=== PATIENT | female | born 1945 | race Caucasian/White ===

== ENCOUNTER → 2016-08-17 | Outpatient (REF) | payer OTHER ==
[~2016-08-17] MED LIST: /CELE20CA PO; /GLIP10TAB PO; ASPI81TA85 PO; ATEN25TA PO; BYET10IN SC; CAL-TAB2 PO; FISH1000 PO; IBUP600T26 OR; LIDO1DIS2 TD; LOPE2TAB PO; METF1000 PO; NEUR600T PO; PREV30CA6 PO; SIMV20TA2 PO; VICO5TAB PO; VITA10002 PO; vitamin D OR
== END ==
LOC: M SFHCWAGY 13:04
PROVIDERS: ATTEND Nurse Practitioner Family
DX: R35.0 Frequency of micturition (principal); R39.15 Urgency of urination; R10.2 Pelvic and perineal pain
CPT/HCPCS: 81002; 87088; 87186; G0463

== ENCOUNTER → 2016-09-18 | Outpatient (CLI) | payer OTHER ==
--- NOTE | 2016-09-18 13:15 | REP ---
MRI RIGHT SHOULDER: TECHNIQUE: Axial T2 fat sat, gradient echo, sagittal oblique T2 fat sat, coronal oblique T1, T2 fat sat. Incomplete full thickness tears are seen of the supraspinatus and infraspinatus tendons. Moderate hypertrophic degenerative changes are seen of the acromioclavicular joint with mild fluid in the joint. Acromion is curved in shape. Biceps tendon is within the bicipital groove. There is no Hill-Sachs deformity. Deltoid muscle demonstrates no abnormal signal. There is fraying of the biceps labral complex and superior labrum diffusely. No other definite labral tear is seen. There is no occult fracture. Moderate joint fluid extends into the subacromial/subdeltoid bursae. I see no paralabral cyst. IMPRESSION: Full thickness incomplete tears of supraspinatus and infraspinatus tendons. Moderate hypertrophic degenerative changes, acromioclavicular joint. Diffuse fraying of the superior labrum as well as of the biceps labral complex. Moderate joint fluid extends into the subacromial/subdeltoid bursae. Signed by Keaton Schroeder MD 09/18/2016 08:09 P
== END ==
LOC: M RAD 10:46
PROVIDERS: ATTEND Orthopaedic Surgery Sports Medicine
DX: S46.811A Strain of other muscles, fascia and tendons at shoulder and upper arm level, right arm, initial encounter (principal); X58.XXXA Exposure to other specified factors, initial encounter; Y92.9 Unspecified place or not applicable; M19.011 Primary osteoarthritis, right shoulder

== ENCOUNTER 2016-11-05 09:05 | Emergency (ER) | payer OTHER ==
[~2016-11-05] VITALS: Ht 157.5 cm; Wt 84.8 kg
[2016-11-05 09:13] VITALS: BP 150/70
[2016-11-05] MEDS ORDERED: FLUC150T PO (09:19)
[2016-11-05] MEDS ORDERED: INVO100T PO (09:19)
[2016-11-05] MEDS ORDERED: DIFL200T PO (10:10)
[2016-11-05] MEDS ORDERED: CLEO300C2 PO (10:10)
[2016-11-05] MEDS ORDERED: CLINDAMYCIN 150 MG CAP PO ONE (10:15)
== END 2016-11-05 10:23 | disposition home or self-care (01) ==
LOC: M ED 09:52
DX: N76.2 Acute vulvitis (principal); B37.9 Candidiasis, unspecified; E11.9 Type 2 diabetes mellitus without complications; R51 Headache; I10 Essential (primary) hypertension; Z79.82 Long term (current) use of aspirin; Z79.899 Other long term (current) drug therapy; Z91.018 Allergy to other foods; Z88.8 Allergy status to other drugs, medicaments and biological substances; Z91.041 Radiographic dye allergy status; Z88.0 Allergy status to penicillin; Z88.1 Allergy status to other antibiotic agents

== ENCOUNTER → 2016-11-07 | Outpatient (REF) | payer OTHER ==
[~2016-11-07] MED LIST changes: +CLEO300C2 PO; +DIFL200T PO; +FLUC150T PO; +INVO100T PO
== END ==
LOC: M SFHCWAGY 13:03
PROVIDERS: ATTEND Nurse Practitioner Women's Health
DX: A60.04 Herpesviral vulvovaginitis (principal); N89.8 Other specified noninflammatory disorders of vagina
CPT/HCPCS: 87070; 87077; 87186; 87255; G0463

== ENCOUNTER → 2017-04-13 | Outpatient (CLI) | payer OTHER ==
--- NOTE | 2017-04-13 11:51 | REPMRS ---
Patient History The patient states she had a clinical breast exam in 03/2017. Patient is postmenopausal. Family history of colorectal cancer in father and breast cancer in daughter at age 40. Benign stereotatic breast biopsy of the left breast. Digital Woman Screen Mammo: April 13, 2017 - Exam #: [id number] Bilateral CC and MLO view(s) were taken. Technologist: Lisbet Green, Technologist Prior study comparison: April 11, 2016, digital woman screen mammo performed at [facility]. March 15, 2015, digital woman screen mammo performed at [facility]. FINDINGS: There are scattered fibroglandular densities. There has been no change in the appearance of the mammogram from the prior studies. There is a mild amount of residual fibroglandular tissue which is fairly symmetric. There is no interval development of dominant mass, architectural distortion, or clustered microcalcification suggestive of malignancy. ASSESSMENT: BI-RADS/ACR category 1 mammogram. Negative. Recommendation Routine screening mammogram in 1 year (for women over age 40). This mammogram was interpreted with the aid of an FDA-approved computer-aided dectection system. Electronically Signed By: Keaton Schroeder MD 04/13/17 [id number]
== END ==
LOC: M WHC 10:27
PROVIDERS: ATTEND Nurse Practitioner Family
DX: Z01.419 Encounter for gynecological examination (general) (routine) without abnormal findings (principal); Z12.31 Encounter for screening mammogram for malignant neoplasm of breast; Z78.0 Asymptomatic menopausal state; Z12.12 Encounter for screening for malignant neoplasm of rectum; Z92.89 Personal history of other medical treatment; Z80.3 Family history of malignant neoplasm of breast
CPT/HCPCS: 82270; G0101; G0202

== ENCOUNTER 2017-11-15 07:23 | Day surgery (SDC) | payer OTHER ==
[2017-11-15] MEDS: LIDOCAINE 0.75%/EPINEPHRINE 0.025% IN BSS 1ML SYR INTRACAMERAL (OR ONLY) As Ordered (06:45)
[~2017-11-15 07:23] MED LIST changes: -/CELE20CA PO; -/GLIP10TAB PO; -ASPI81TA85 PO; -ATEN25TA PO; -BYET10IN SC; -CAL-TAB2 PO; -CLEO300C2 PO; -DIFL200T PO; -FISH1000 PO; -FLUC150T PO; -IBUP600T26 OR; -INVO100T PO; -LIDO1DIS2 TD; -LOPE2TAB PO; -METF1000 PO; -NEUR600T PO; +OFLOXACIN 0.3 % (OCUFLOX) OPTH SOL 5ML OS; +PHENYLEPHRINE 2.5% OPHTH SOL 2ML OS; -PREV30CA6 PO; +PROPARACAINE 0.5% OPHTH SOL 15ML OS; -SIMV20TA2 PO; +TROPICAMIDE 1% OPHTH SOLN 2ML OS; -VICO5TAB PO; -VITA10002 PO; -vitamin D OR
[2017-11-15] MEDS ORDERED: fentaNYL 100 MCG/2 ML INJECTION (J3010) As Ordered (08:08)
[2017-11-15] MEDS ORDERED: MIDAZOLAM INJ 2 MG/2 ML VIAL (J2250) As Ordered (08:08)
[2017-11-15 08:26] LABS: BEDSIDE GLUCOSE 256 MG/DL (83-110)
[2017-11-15] MEDS: PROPARACAINE 0.5% OPHTH SOL 15ML OS (08:51)
[2017-11-15] MEDS: OFLOXACIN 0.3 % (OCUFLOX) OPTH SOL 5ML OS (08:52)
[2017-11-15] MEDS: TROPICAMIDE 1% OPHTH SOLN 2ML OS (08:52)
[2017-11-15] MEDS: POVIDONE-IODINE 5% OPHTH PREP SOL 30ML As Ordered (09:27)
[2017-11-15] MEDS: DUOVISC (0.50ML VISCOAT/0.55ML PROVISC) OPHTH KIT As Ordered (09:28)
[2017-11-15] MEDS: BALANCED SALT IRRIGATION SOLUTION 500ML BAG (FOR OR EYE MACHINE) As Ordered (09:28)
[2017-11-15] MEDS: LIDOCAINE 1% SDV 5 ML VIAL As Ordered (09:28)
== END 2017-11-15 10:35 | disposition home or self-care (01) ==
LOC: M SDC 07:23
DX: H25.12 Age-related nuclear cataract, left eye (principal); I10 Essential (primary) hypertension; E11.21 Type 2 diabetes mellitus with diabetic nephropathy; M12.9 Arthropathy, unspecified; E78.00 Pure hypercholesterolemia, unspecified; E03.9 Hypothyroidism, unspecified; K58.9 Irritable bowel syndrome, unspecified; K21.9 Gastro-esophageal reflux disease without esophagitis; R51 Headache; G47.33 Obstructive sleep apnea (adult) (pediatric); Z88.0 Allergy status to penicillin; Z88.1 Allergy status to other antibiotic agents; Z88.6 Allergy status to analgesic agent; Z88.8 Allergy status to other drugs, medicaments and biological substances; Z91.041 Radiographic dye allergy status; Z79.899 Other long term (current) drug therapy; Z79.82 Long term (current) use of aspirin; Z79.84 Long term (current) use of oral hypoglycemic drugs; Z90.710 Acquired absence of both cervix and uterus
CPT/HCPCS: 66984

== ENCOUNTER 2017-11-22 06:20 | Day surgery (SDC) | payer OTHER ==
[~2017-11-22 06:20] MED LIST changes: -OFLOXACIN 0.3 % (OCUFLOX) OPTH SOL 5ML OS; -PHENYLEPHRINE 2.5% OPHTH SOL 2ML OS; -PROPARACAINE 0.5% OPHTH SOL 15ML OS; +SLF 3 ML SYR IV; -TROPICAMIDE 1% OPHTH SOLN 2ML OS
[2017-11-22] MEDS ORDERED: fentaNYL 100 MCG/2 ML INJECTION (J3010) As Ordered (06:55)
[2017-11-22] MEDS ORDERED: MIDAZOLAM INJ 2 MG/2 ML VIAL (J2250) As Ordered (06:55)
[2017-11-22] MEDS: PROPARACAINE 0.5% OPHTH SOL 15ML OD (07:00)
[2017-11-22] MEDS: PHENYLEPHRINE 2.5% OPHTH SOL 2ML OD (07:01)
[2017-11-22] MEDS: TROPICAMIDE 1% OPHTH SOLN 2ML OD (07:02)
[2017-11-22] MEDS: OFLOXACIN 0.3 % (OCUFLOX) OPTH SOL 5ML OD (07:05)
[2017-11-22 07:13] LABS: BEDSIDE GLUCOSE 240 MG/DL (83-110)
[2017-11-22] MEDS: POVIDONE-IODINE 5% OPHTH PREP SOL 30ML As Ordered (08:02)
[2017-11-22] MEDS: ACETYLCHOLINE OPHTH SOLN 1% 2ML (MIOCHOL-E) As Ordered (08:04)
[2017-11-22] MEDS: LIDOCAINE 0.75%/EPINEPHRINE 0.025% IN BSS 1ML SYR INTRACAMERAL (OR ONLY) As Ordered (08:04)
[2017-11-22] MEDS: DUOVISC (0.50ML VISCOAT/0.55ML PROVISC) OPHTH KIT As Ordered (08:04)
[2017-11-22] MEDS: BALANCED SALT IRRIGATION SOLUTION 500ML BAG (FOR OR EYE MACHINE) As Ordered (08:04)
== END 2017-11-22 09:05 | disposition home or self-care (01) ==
LOC: M SDC 06:20
DX: H25.11 Age-related nuclear cataract, right eye (principal); I10 Essential (primary) hypertension; E78.00 Pure hypercholesterolemia, unspecified; E03.9 Hypothyroidism, unspecified; K58.9 Irritable bowel syndrome, unspecified; K21.9 Gastro-esophageal reflux disease without esophagitis; R51 Headache; G47.33 Obstructive sleep apnea (adult) (pediatric); E11.21 Type 2 diabetes mellitus with diabetic nephropathy; M15.0 Primary generalized (osteo)arthritis; Z88.0 Allergy status to penicillin; Z88.1 Allergy status to other antibiotic agents; Z88.8 Allergy status to other drugs, medicaments and biological substances; Z91.041 Radiographic dye allergy status; Z79.899 Other long term (current) drug therapy; Z79.82 Long term (current) use of aspirin; Z79.84 Long term (current) use of oral hypoglycemic drugs; Z90.710 Acquired absence of both cervix and uterus
CPT/HCPCS: 66984

== ENCOUNTER → 2017-11-27 | Outpatient (REF) | payer OTHER | LOC: M LAB REF 17:17 | DX: R30.0 Dysuria (principal) | CPT/HCPCS: 87086 ==

== ENCOUNTER → 2018-04-15 | Outpatient (CLI) | payer OTHER | LOC: M WHC 10:35 | DX: Z12.31 Encounter for screening mammogram for malignant neoplasm of breast (principal); Z01.419 Encounter for gynecological examination (general) (routine) without abnormal findings (principal); Z92.89 Personal history of other medical treatment; R92.1 Mammographic calcification found on diagnostic imaging of breast; Z85.3 Personal history of malignant neoplasm of breast; Z12.12 Encounter for screening for malignant neoplasm of rectum | CPT/HCPCS: 77067 ==

== ENCOUNTER 2018-05-28 12:30 | Emergency (ER) | payer MEDICARE, OTHER ==
[~2018-05-28] VITALS: Ht 157.5 cm; Wt 91.8 kg
[~2018-05-28 12:30] MED LIST changes: +/CELE20CA PO; +/GLIP10TAB PO; +ASPI81TA85 PO; +ATEN25TA PO; +ATOR40TA75 PO; +BYET10IN SC; +CAL-TAB2 PO; +CLEO300C2 PO; +DIFL200T PO; +FISH1000 PO; +FLUC150T PO; +GABA-845 PO; +GLIP2.5T6 PO; +IBUP600T26 OR; +INVO100T PO; +LANS30CA PO; +LIDO1DIS2 TD; +LISI-538 PO; +LOPE2CA PO; +LOPE2TAB PO; +METF1000 PO; +METF10004 PO; +METO1TAB7 PO; +NEUR600T PO; +PREV30CA6 PO; +SIMV20TA2 PO; -SLF 3 ML SYR IV; +TORS10TA3 PO; +VICO5TAB PO; +VICT18IN SC; +VITA10002 PO; +VITA200016 PO; +vitamin D OR
[2018-05-28 12:31] VITALS: BP 138/78
[2018-05-28] MEDS ORDERED: TRES1INJ2 SC (12:43)
[2018-05-28] MEDS ORDERED: PRED20TA PO (13:23)
[2018-05-28] MEDS ORDERED: ZOFR4TAB14 PO (13:23)
[2018-05-28] MEDS ORDERED: ACET30TAB PO (13:23)
[2018-05-28] MEDS ORDERED: ONDANSETRON 4 MG ORAL DISINTEGRATING TAB (Q0162 PER 1MG) PO ONE (13:30)
[2018-05-28] MEDS ORDERED: ACETAMINOPH W/CODEINE #3 TAB UD PO ONE (13:30)
== END 2018-05-28 13:30 | disposition home or self-care (01) ==
LOC: M ED 12:30
DX: M54.5 Low back pain (principal); G89.29 Other chronic pain
CPT/HCPCS: 99282; Q0162

== ENCOUNTER → 2018-08-31 | Outpatient (CLI) | payer MEDICARE ==
[~2018-08-31] MED LIST changes: -/CELE20CA PO; +ACET-716 PO; +CELE1CAP4 PO; +PRED20TA PO; +TRES1INJ2 SC; +ZOFR4TAB14 PO
--- NOTE | 2018-08-31 13:14 | REP ---
Clinical: Sprain. Technique: AP, lateral, bilateral oblique and sunrise views of the left knee. Findings: Moderate tricompartmental osteoarthritic degenerative changes include subchondral sclerosis, joint space narrowing, osteophytosis and very minimal chondrocalcinosis. No acute fracture dislocation. No obvious effusion. Impression: Moderate tricompartmental degenerative changes. Electronically Signed by Fredrick Montoya MD 08/31/2018 01:05 P
== END ==
LOC: M WUC 12:44
PROVIDERS: ATTEND Physician Assistant
DX: S83.402A Sprain of unspecified collateral ligament of left knee, initial encounter (principal); M17.12 Unilateral primary osteoarthritis, left knee; X58.XXXA Exposure to other specified factors, initial encounter; Y92.89 Other specified places as the place of occurrence of the external cause

== ENCOUNTER → 2018-12-17 | Outpatient (REF) | payer MEDICARE | LOC: M LAB REF 10:44 | DX: R19.7 Diarrhea, unspecified (principal) ==

== ENCOUNTER → 2019-04-16 | Outpatient (CLI) | payer BC, MEDICARE ==
--- NOTE | 2019-04-16 12:15 | REPMRS ---
Patient History The patient states she had a clinical breast exam in 03/2019. Patient is postmenopausal. Family history of breast cancer at age 40 in daughter, colorectal cancer in father. Benign stereotatic breast biopsy of the left breast. No Hormone Replacement Therapy 3D TOMOSYNTHESIS WAS PERFORMED. [facility] lifetime risk for breast cancer is 6.3%. Digital Woman Screen Mammo: April 16, 2019 - Exam #: [id number] Bilateral CC and MLO view(s) were taken. Technologist: Lisbet Green, Technologist Prior study comparison: April 15, 2018, bilateral digital woman screen mammo performed at [facility]. April 13, 2017, digital woman screen mammo performed at [facility]. FINDINGS: There are scattered fibroglandular densities. There has been no change in the appearance of the mammogram from the prior studies. There is a mild amount of residual fibroglandular tissue which is fairly symmetric. There is no interval development of dominant mass, architectural distortion, or clustered microcalcification suggestive of malignancy. Assessment: BI-RADS/ACR category 1 mammogram. Negative Mammogram. Recommendation Routine screening mammogram in 1 year (for women over age 40). This mammogram was interpreted with the aid of an FDA-approved computer-aided dectection system. Electronically Signed By: Keaton Schroeder MD 04/16/19 [id number]
== END ==
LOC: M WHC 09:26
PROVIDERS: ATTEND Nurse Practitioner Family
DX: Z12.31 Encounter for screening mammogram for malignant neoplasm of breast (principal); Z78.0 Asymptomatic menopausal state; Z80.3 Family history of malignant neoplasm of breast; Z80.0 Family history of malignant neoplasm of digestive organs; Z86.018 Personal history of other benign neoplasm

== ENCOUNTER → 2019-10-21 | Outpatient (CLI) | payer MEDICARE ==
--- NOTE | 2019-10-21 11:51 | REPMRS ---
Patient History The patient states she has not had a clinical breast exam in over a year. Patient is postmenopausal. Family history of breast cancer at age 40 in daughter, colorectal cancer in father. Benign stereotatic breast biopsy of the left breast. No Hormone Replacement Therapy Digital Woman Screen Mammo: October 21, 2019 - Exam #: [id number] Bilateral CC and MLO view(s) were taken. Technologist: Amara Murray, Technologist Prior study comparison: April 16, 2019, bilateral digital woman screen mammo performed at [facility]. April 15, 2018, bilateral digital woman screen mammo performed at [facility]. April 13, 2017, digital woman screen mammo performed at [facility]. FINDINGS: The breast tissue is almost entirely fat. The Volpara volumetric breast density category is: A. There is a needle biopsy marker clip again noted in the right breast upper outer quadrant. There has been no change in the appearance of the mammogram from the prior studies. There is no interval development of dominant mass, architectural distortion, or grouped microcalcification typical of malignancy. 3-D tomosynthesis shows no additional findings. Assessment: BI-RADS/ACR category 2 mammogram. Benign Findings. Recommendation Routine screening mammogram of both breasts in 1 year (for women over age 40). This patient's Lifetime Breast Cancer RIsk is estimated at 6.3 %. This mammogram was interpreted with the aid of an FDA-approved computer-aided dectection system. Electronically Signed By: Catracho Malave MD 10/21/19 [id number]
== END ==
LOC: M WHC 10:27
PROVIDERS: ATTEND Nurse Practitioner Adult Health
DX: Z12.31 Encounter for screening mammogram for malignant neoplasm of breast (principal); Z78.0 Asymptomatic menopausal state; Z80.3 Family history of malignant neoplasm of breast; Z80.0 Family history of malignant neoplasm of digestive organs; Z86.018 Personal history of other benign neoplasm

== ENCOUNTER 2020-01-29 07:45 | Outpatient (RCR) | payer MEDICARE | END 2020-02-25 | LOC: M PT 07:45 | PROVIDERS: ATTEND Nurse Practitioner Adult Health | DX: R42 Dizziness and giddiness (principal) ==

== ENCOUNTER → 2020-04-19 | Outpatient (CLI) | payer MEDICARE ==
--- NOTE | 2020-04-19 13:37 | DEXAMM ---
INDICATION: Z78.0 ASYMPTOMATIC MENOPAUSAL STATE. COMPARISON: 03/15/2015. TECHNIQUE: Bone density was measured using dual-energy x-ray absorptiometry (DEXA). FINDINGS: AP SPINE L1-L4 BMD 0.954 g/cm2 Young Adult T-Score -1.9 Age Matched Z-Score -0.2. LT FEMUR, TOTAL BMD 1.085 g/cm2 Young Adult T-Score 0.6 Age Matched Z-Score 2.4. LT NECK BMD by 0.915 g/cm2 Young Adult T-Score 5-0.9 Age Matched Z-Score 1.1. RT FEMUR, TOTAL BMD 1.054 g/cm2 Young Adult T-Score 0.4 Age Matched Z-Score for 2.2. RT NECK BMD 0.905 g/cm2 Young Adult T-Score 5-1.0 Age Matched Z-Score 1.0. IMPRESSION: There is low bone density of the spine. There is normal bone density of the left hip. There is low bone density of the right hip. The density of the spine has increased 1.1% since the initial exam on 03/15/2015. The density of the left hip has decreased 1.9% since initial exam on 03/15/2015. The density of the right hip has increased 1.1% since the initial exam on 03/15/2015. FOLLOW-UP: Recommendation for the next bone density exam: 2 years. <Electronically signed by Keaton Schroeder > 04/19/20 [id number]
== END ==
LOC: M WHC 09:42
PROVIDERS: ATTEND Nurse Practitioner Family
DX: Z78.0 Asymptomatic menopausal state (principal)

== ENCOUNTER → 2020-10-21 | Outpatient (CLI) | payer MEDICARE ==
[~2020-10-21] MED LIST changes: +GABA-283 PO; -GABA-845 PO; -LISI-538 PO; +LISI20TA33 PO
--- NOTE | 2020-10-21 10:34 | REP ---
INDICATION: LOW BACK PAIN COMPARISON: None. TECHNIQUE: AP, lateral, bilateral oblique, and coned-down views of the lumbar spine. FINDINGS: AP radiograph demonstrates mild chronic dextroconvex scoliosis. Generalized age-related osteopenia noted. There is no evidence for acute fracture/compression injury or subluxation. Relatively moderate multilevel degenerative changes include osteophytosis, endplate sclerosis, facet hypertrophy. Minimal disc space narrowing noted at multiple levels. IMPRESSION: Osteopenia and relatively moderate multilevel degenerative changes. <Electronically signed by Fredrick Montoya > 10/21/20 [id number]
== END ==
LOC: M WUC 10:04
PROVIDERS: ATTEND Nurse Practitioner Adult Health
DX: M85.88 Other specified disorders of bone density and structure, other site (principal); M41.9 Scoliosis, unspecified

== ENCOUNTER → 2020-10-21 | Outpatient (CLI) | payer MEDICARE ==
--- NOTE | 2020-10-21 10:44 | REPMRS ---
Patient History The patient states she has not had a clinical breast exam in over a year. Family history of breast cancer at age 40 in daughter, colorectal cancer in father. Benign stereotatic breast biopsy of the left breast. No Hormone Replacement Therapy Patient states no breast complaints today. Patient has signed MRS History Sheet. Digital Woman Screen Mammo: October 21, 2020 - Exam #: [id number] Bilateral CC and MLO view(s) were taken. Technologist: Freda Serrano, Technologist Prior study comparison: October 21, 2019, bilateral digital woman screen mammo performed at [facility]. April 16, 2019, bilateral digital woman screen mammo performed at [facility]. April 15, 2018, bilateral digital woman screen mammo performed at [facility]. FINDINGS: There are scattered fibroglandular densities. The Volpara volumetric breast density category is:B. There is a needle biopsy marker clip noted in the right breast. There has been no change in the appearance of the mammogram from the prior studies. There is a mild amount of scattered fibroglandular density which is fairly symmetric. There is no interval development of dominant mass, architectural distortion, or grouped microcalcification suggestive of malignancy. 3-D tomosynthesis shows no additional findings. Assessment: BI-RADS/ACR category 2 mammogram. Benign Findings. Recommendation Routine screening mammogram of both breasts in 1 year (for women over age 40). This patient's [facility] Lifetime Breast Cancer Risk is estimated at 5.8 %. This mammogram was interpreted with the aid of an FDA-approved computer-aided dectection system. Electronically Signed By: Catracho Malave MD 10/21/20 [id number]
== END ==
LOC: M WHC 09:18
PROVIDERS: ATTEND Nurse Practitioner Adult Health
DX: Z12.31 Encounter for screening mammogram for malignant neoplasm of breast (principal); Z80.3 Family history of malignant neoplasm of breast; Z80.8 Family history of malignant neoplasm of other organs or systems

== ENCOUNTER → 2021-04-18 | Outpatient (CLI) | payer MEDICARE ==
--- NOTE | 2021-04-18 14:11 | REP ---
INDICATION: PAIN. COMPARISON: None. TECHNIQUE: Three views of the left shoulder were performed. FINDINGS: The acromioclavicular and glenohumeral relationships are within normal limits. There is no acute fracture or destructive osseous lesion. There are mild AC joint degenerative changes. IMPRESSION: Mild degenerative changes <Electronically signed by Scar Stevens > 04/18/21 [id number]
--- NOTE | 2021-04-18 14:11 | REP ---
INDICATION: PAIN COMPARISON: None. TECHNIQUE: AP, lateral, bilateral oblique views of the left elbow. FINDINGS: No acute fracture or dislocation is appreciated. Joint spaces and surrounding soft tissues appear normal. Lateral view demonstrates normal positioning to the anterior and posterior fat pads without evidence for effusion/hemarthrosis. No subcutaneous emphysema or foreign body identified. IMPRESSION: Normal elbow radiographs. <Electronically signed by Fredrick Montoya > 04/18/21 [id number]
--- NOTE | 2021-04-18 14:12 | REP ---
INDICATION: PAIN COMPARISON: 08/31/2018 TECHNIQUE: Five views FINDINGS: There is tricompartmental marginal osteophytosis status quo. There is medial compartmental narrowing which has increased from the prior exam. There is asymmetric patellofemoral joint space narrowing increased from the prior exam. There is no acute fracture, dislocation, or subluxation. IMPRESSION: Chronic changes as described above. <Electronically signed by Scar Stevens > 04/18/21 [id number]
== END ==
LOC: M WUC 12:59
PROVIDERS: ATTEND Physician Assistant
DX: M25.512 Pain in left shoulder (principal); M25.522 Pain in left elbow; M25.762 Osteophyte, left knee

== ENCOUNTER → 2021-11-24 | Outpatient (CLI) | payer OTHER ==
[~2021-11-24] MED LIST changes: -FLUC150T PO; +FLUC150T9 PO
== END ==
LOC: M WHC 07:59
PROVIDERS: ATTEND Nurse Practitioner Adult Health
DX: Z12.31 Encounter for screening mammogram for malignant neoplasm of breast (principal)

== ENCOUNTER → 2021-12-15 | Outpatient (CLI) | payer OTHER | LOC: M WHC 12:15 | PROVIDERS: ATTEND Nurse Practitioner Adult Health | DX: R92.8 Other abnormal and inconclusive findings on diagnostic imaging of breast (principal); N63.11 Unspecified lump in the right breast, upper outer quadrant ==

== ENCOUNTER → 2021-12-19 | Outpatient (CLI) | payer OTHER | LOC: M WUC 14:37 | PROVIDERS: ATTEND Registered Nurse | DX: F45.41 Pain disorder exclusively related to psychological factors (principal); M25.511 Pain in right shoulder ==

== ENCOUNTER → 2022-01-05 | Outpatient (CLI) | payer OTHER ==
[~2022-01-05] MED LIST changes: +**SFHN** LIDOCAINE 1% MDV 20ML VIAL ONE; +**SFHN** SODIUM BICARBONATE 8.4% 50MEQ 50ML VIAL ONE; +CINN500C15 PO; +GLIM2TAB4 PO; +LANTINJ4 SC; +LOPE1CAP5 PO; +PROTPAK PO; +SEMA1PEN2 SQ
[2022-01-05 14:15] VITALS: BP 120/70
== END ==
LOC: M WHCPRO 12:24
PROVIDERS: ATTEND Nurse Practitioner Adult Health
DX: D24.1 Benign neoplasm of right breast (principal); N63.11 Unspecified lump in the right breast, upper outer quadrant

== ENCOUNTER → 2022-01-09 | Outpatient (CLI) | payer OTHER ==
[~2022-01-09] MED LIST changes: -**SFHN** LIDOCAINE 1% MDV 20ML VIAL ONE; -**SFHN** SODIUM BICARBONATE 8.4% 50MEQ 50ML VIAL ONE
== END ==
LOC: M PLAIMG 09:50
PROVIDERS: ATTEND Registered Nurse
DX: R91.1 Solitary pulmonary nodule (principal); K80.20 Calculus of gallbladder without cholecystitis without obstruction

== ENCOUNTER → 2022-01-24 | Outpatient (CLI) | payer OTHER | LOC: M CARPUL 11:56 | PROVIDERS: ATTEND Nurse Practitioner Adult Health | DX: R01.1 Cardiac murmur, unspecified (principal) ==

== ENCOUNTER → 2022-01-31 | Outpatient (CLI) | payer OTHER | LOC: M PLAIMG 10:01 | PROVIDERS: ATTEND Registered Nurse | DX: R91.1 Solitary pulmonary nodule (principal) ==

== ENCOUNTER → 2022-03-01 | Outpatient (REF) | payer OTHER | LOC: M LAB REF 16:27 | PROVIDERS: ATTEND Nurse Practitioner Adult Health | DX: Z11.59 Encounter for screening for other viral diseases (principal) ==

== ENCOUNTER → 2022-04-03 | Outpatient (REF) | payer OTHER | LOC: M LAB REF 11:54 | PROVIDERS: ATTEND Nurse Practitioner Adult Health | DX: S70.361A Insect bite (nonvenomous), right thigh, initial encounter (principal); Z11.59 Encounter for screening for other viral diseases; W18.30XA Fall on same level, unspecified, initial encounter; Y92.009 Unspecified place in unspecified non-institutional (private) residence as the place of occurrence of the external cause ==

== ENCOUNTER → 2022-05-12 | Outpatient (REF) | payer OTHER | LOC: M LAB REF 17:20 | PROVIDERS: ATTEND Nurse Practitioner Adult Health | DX: R32 Unspecified urinary incontinence (principal) ==

== ENCOUNTER → 2022-07-05 | Outpatient (CLI) | payer OTHER | LOC: M WUC 11:48 | PROVIDERS: ATTEND Nurse Practitioner Adult Health | DX: R05.9 Cough, unspecified (principal); I70.0 Atherosclerosis of aorta ==

== ENCOUNTER 2022-07-22 09:42 | Inpatient (IN) | payer OTHER ==
[~2022-07-22] VITALS: Ht 165.1 cm; Wt 93.7 kg
[2022-07-22] MEDS ORDERED: NS 1,000 ML IV SCH (10:10)
[2022-07-22 10:53] LABS: VENOUS BASE EXCESS -0.1 (-2.0-2.0); VENOUS HCO3 26.7 MEQ/L (23.0-27.0); VENOUS O2 SATURATION 87.4 % (60.0-80.0); VENOUS PARTIAL PRESSURE CO2 52.2 mmHg (38.0-50.0); VENOUS PARTIAL PRESSURE O2 59.1 mmHg (30.0-50.0); VENOUS PH 7.326 UNITS (7.330-7.430); VENOUS STANDARD HCO3 24.2 MEQ/L; VENOUS TOTAL CO2 28.3 MEQ/L (24.0-28.0)
[2022-07-22 10:55] LABS: BASO % 0.4 % (0.0-1.0); HEMATOCRIT 38.5 % (36.0-47.0); LYMPH % 19.5 % (24.0-44.0); MEAN CORPUSCULAR HEMOGLOBIN 30.1 pg (27.0-33.0); MEAN CORPUSCULAR HGB CONC 31.2 g/dl (32.0-36.5); MEAN CORPUSCULAR VOLUME 96.5 fl (80.0-96.0); MONO # 0.8 10^3/uL (0.0-0.8); MONO % 15.8 % (2.0-8.0); NEUTROPHILS # 3.4 10^3/uL (1.5-8.5); NEUTROPHILS % 63.9 % (36.0-66.0); PLATELET COUNT, AUTOMATED 185 10^3/uL (150-450); RED BLOOD COUNT 3.99 10^6/uL (4.00-5.40); WHITE BLOOD COUNT 5.3 10^3/uL (4.0-10.0)
[2022-07-22 11:26] LABS: RSV AMPLIFICATION NEGATIVE (NEGATIVE)
[2022-07-22 11:44] LABS: ALBUMIN 3.6 G/DL (3.2-5.2); BILIRUBIN,DIRECT 0.2 MG/DL (<0.4); BILIRUBIN,TOTAL 0.5 MG/DL (0.3-1.2); CREATININE FOR GFR 1.6 MG/DL (0.55-1.30); GLOMERULAR FILTRATION RATE 33.2 (>39); POTASSIUM SERUM 4.2 MMOL/L (3.5-5.1); THYROID STIMULATING HORMONE 0.615 uIU/ML (0.55-4.78)
[2022-07-22] MEDS ORDERED: methylPREDNISolone 125MG 2ML VIAL IV ONE (13:20)
[2022-07-22] MEDS ORDERED: DEXTROSE 50% 50ML SYRINGE IV PRN (13:20)
[2022-07-22] MEDS ORDERED: GLUCAGON INJ 1MG VIAL SC PRN (13:20)
[2022-07-22] MEDS ORDERED: GLUCOSE 4GM CHEW TABLET PO PRN (13:20)
[2022-07-22] MEDS ORDERED: ALBUTEROL 90 MCG/ACT 8GM HFA INHALER INH PRN (13:20)
[2022-07-22] MEDS: NS 1,000 ML IV SCH ×2 (13:50→23:59)
[2022-07-22 14:48] VITALS: O2SAT 96
[2022-07-22] MEDS: COMBIVENT RESPIMAT 100-20MCG INHALER 4GM INH SCH ×2 (14:48→20:14)
[2022-07-22] MEDS ORDERED: ASPI81TA26 PO (14:54)
[2022-07-22] MEDS ORDERED: PANT40TA29 PO (14:54)
[2022-07-22] MEDS ORDERED: B-12100020 PO (14:54)
[2022-07-22] MEDS ORDERED: FLUTISP NARES (14:54)
[2022-07-22] MEDS ORDERED: VITA100093 PO (14:54)
[2022-07-22] MEDS ORDERED: JARD1TAB PO (14:54)
[2022-07-22] MEDS ORDERED: METO1TAB33 PO (14:54)
[2022-07-22] MEDS ORDERED: HOME MED LIST COMPLETE! XX SCH (15:00)
[2022-07-22 15:29] LABS: INR 1.03; PARTIAL THROMBOPLASTIN TIME 26.1 SECONDS (24.8-34.2); PROTHROMBIN TIME 13.7 SECONDS (12.5-14.5)
[2022-07-22 15:32] LABS: D-DIMER QUANT 1112.46 ng/ml (<500)
[2022-07-22 16:45] VITALS: BP 134/65
[2022-07-22] MEDS: INSULIN LISPRO (NovoLOG) PER UNIT SC SCH ×2 (17:44→21:00)
[2022-07-22] MEDS ORDERED: REMDESIVIR 200 MG in NS 250 ML IV ONE (18:00)
[2022-07-22] MEDS ORDERED: SODIUM CHLORIDE 0.9% INJ 10 ML SYR IV ONE (19:00)
[2022-07-22] MEDS ORDERED: FLUTICASONE PROP 0.05% NASAL SPRAY 16 GM (FLONASE) NARES PRN (19:20)
[2022-07-22 20:00] VITALS: BP 138/71
[2022-07-22] MEDS: ASPIRIN 81MG ENTERIC TABLET PO SCH (21:35)
[2022-07-22] MEDS: GABAPENTIN 300 MG CAP PO SCH (21:35)
[2022-07-22] MEDS: HEPARIN SOD (PORCINE) 5000UNITS/ML 1ML VIAL/SYRINGE SQ SCH (21:35)
[2022-07-22] MEDS: ATORVASTATIN 20 MG TAB PO SCH (21:36)
[2022-07-22] MEDS: ACETAMINOPHEN TAB 650MG DOSE (2X325MG) PO PRN (21:36)
[2022-07-23 06:00] VITALS: BP 132/64
[2022-07-23] MEDS: ACETAMINOPHEN TAB 650MG DOSE (2X325MG) PO PRN ×2 (06:33→20:07)
[2022-07-23 06:36] LABS: HEMATOCRIT 35.9 % (36.0-47.0); HEMOGLOBIN 10.9 g/dl (12.0-15.5); MEAN CORPUSCULAR HEMOGLOBIN 29.5 pg (27.0-33.0); MEAN CORPUSCULAR HGB CONC 30.4 g/dl (32.0-36.5); PLATELET COUNT, AUTOMATED 157 10^3/uL (150-450); WHITE BLOOD COUNT 3.9 10^3/uL (4.0-10.0)
[2022-07-23 07:11] LABS: BILIRUBIN,TOTAL 0.3 MG/DL (0.3-1.2); CALCIUM LEVEL 8.1 MG/DL (8.3-10.6); CREATININE FOR GFR 1.42 MG/DL (0.55-1.30); GLOMERULAR FILTRATION RATE 38.1 (>39); POTASSIUM SERUM 4.3 MMOL/L (3.5-5.1); TOTAL PROTEIN 5.9 G/DL (5.7-8.2)
[2022-07-23] MEDS: COMBIVENT RESPIMAT 100-20MCG INHALER 4GM INH SCH ×4 (07:21→19:07)
[2022-07-23] MEDS: GABAPENTIN 300 MG CAP PO SCH ×3 (08:17→20:06)
[2022-07-23] MEDS: INSULIN LISPRO (NovoLOG) PER UNIT SC SCH ×4 (08:18→20:06)
[2022-07-23] MEDS: PANTOPRAZOLE 40MG TAB (PROTONIX) PO SCH (08:18)
[2022-07-23] MEDS: HEPARIN SOD (PORCINE) 5000UNITS/ML 1ML VIAL/SYRINGE SQ SCH ×2 (08:19→20:06)
[2022-07-23] MEDS: METOPROLOL SUCC (TopROL XL) 100MG *XL* TAB PO SCH (08:26)
[2022-07-23] MEDS ORDERED: LEVEMIR (INSULIN DETEMIR) 1 UNITS/0.01ML SC SCH ×2 (09:00)
[2022-07-23] MEDS: NS 1,000 ML IV SCH ×2 (10:48→22:58)
[2022-07-23 14:00] VITALS: BP 113/53
[2022-07-23] MEDS: REMDESIVIR 100 MG in NS 250 ML IV SCH (17:18)
[2022-07-23] MEDS: SODIUM CHLORIDE 0.9% INJ 10 ML SYR IV SCH (17:18)
[2022-07-23] MEDS: ATORVASTATIN 20 MG TAB PO SCH (20:05)
[2022-07-23] MEDS: ASPIRIN 81MG ENTERIC TABLET PO SCH (20:05)
[2022-07-23 22:00] VITALS: BP 114/52
[2022-07-24] MEDS: ACETAMINOPHEN TAB 650MG DOSE (2X325MG) PO PRN ×2 (04:11→20:42)
[2022-07-24 06:00] VITALS: BP 119/63
[2022-07-24 06:16] LABS: HEMATOCRIT 30.8 % (36.0-47.0); HEMOGLOBIN 9.6 g/dl (12.0-15.5); MEAN CORPUSCULAR HEMOGLOBIN 29.7 pg (27.0-33.0); MEAN CORPUSCULAR HGB CONC 31.2 g/dl (32.0-36.5); MEAN CORPUSCULAR VOLUME 95.4 fl (80.0-96.0); PLATELET COUNT, AUTOMATED 162 10^3/uL (150-450); RED BLOOD COUNT 3.23 10^6/uL (4.00-5.40); WHITE BLOOD COUNT 4.3 10^3/uL (4.0-10.0)
[2022-07-24 06:51] LABS: ALBUMIN 2.7 G/DL (3.2-5.2); BILIRUBIN,TOTAL 0.2 MG/DL (0.3-1.2); CALCIUM LEVEL 7.7 MG/DL (8.3-10.6); CREATININE FOR GFR 1.14 MG/DL (0.55-1.30); GLOMERULAR FILTRATION RATE 49.1 (>39); POTASSIUM SERUM 4.5 MMOL/L (3.5-5.1); TOTAL PROTEIN 5.3 G/DL (5.7-8.2)
[2022-07-24] MEDS: COMBIVENT RESPIMAT 100-20MCG INHALER 4GM INH SCH ×4 (08:00→19:18)
[2022-07-24] MEDS: HEPARIN SOD (PORCINE) 5000UNITS/ML 1ML VIAL/SYRINGE SQ SCH ×2 (08:40→20:39)
[2022-07-24] MEDS: GABAPENTIN 300 MG CAP PO SCH ×3 (08:41→20:39)
[2022-07-24] MEDS: METOPROLOL SUCC (TopROL XL) 100MG *XL* TAB PO SCH (08:41)
[2022-07-24] MEDS: PANTOPRAZOLE 40MG TAB (PROTONIX) PO SCH (08:41)
[2022-07-24] MEDS: LEVEMIR (INSULIN DETEMIR) 1 UNITS/0.01ML SC SCH (08:42)
[2022-07-24] MEDS: INSULIN LISPRO (NovoLOG) PER UNIT SC SCH ×4 (08:43→20:40)
[2022-07-24] MEDS ORDERED: predniSONE 20 MG TAB PO SCH (09:00)
[2022-07-24 14:00] VITALS: BP 109/47
[2022-07-24] MEDS: REMDESIVIR 100 MG in NS 250 ML IV SCH (17:33)
[2022-07-24] MEDS: SODIUM CHLORIDE 0.9% INJ 10 ML SYR IV SCH (19:00)
[2022-07-24 20:00] VITALS: BP 108/49
[2022-07-24] MEDS: ATORVASTATIN 20 MG TAB PO SCH (20:39)
[2022-07-24] MEDS: ASPIRIN 81MG ENTERIC TABLET PO SCH (20:39)
[2022-07-25 04:08] VITALS: BP 117/58
[2022-07-25 06:01] LABS: HEMATOCRIT 31.6 % (36.0-47.0); HEMOGLOBIN 9.9 g/dl (12.0-15.5); MEAN CORPUSCULAR HEMOGLOBIN 29.7 pg (27.0-33.0); MEAN CORPUSCULAR HGB CONC 31.3 g/dl (32.0-36.5); MEAN CORPUSCULAR VOLUME 94.9 fl (80.0-96.0); PLATELET COUNT, AUTOMATED 150 10^3/uL (150-450); RED BLOOD COUNT 3.33 10^6/uL (4.00-5.40); WHITE BLOOD COUNT 4.6 10^3/uL (4.0-10.0)
[2022-07-25 06:31] LABS: ALBUMIN 2.8 G/DL (3.2-5.2); BILIRUBIN,TOTAL 0.3 MG/DL (0.3-1.2); CALCIUM LEVEL 7.9 MG/DL (8.3-10.6); CREATININE FOR GFR 1.08 MG/DL (0.55-1.30); GLOMERULAR FILTRATION RATE 52.2 (>39); POTASSIUM SERUM 4.3 MMOL/L (3.5-5.1); TOTAL PROTEIN 5.4 G/DL (5.7-8.2)
[2022-07-25] MEDS: COMBIVENT RESPIMAT 100-20MCG INHALER 4GM INH SCH ×3 (07:53→14:51)
[2022-07-25] MEDS: HEPARIN SOD (PORCINE) 5000UNITS/ML 1ML VIAL/SYRINGE SQ SCH (08:53)
[2022-07-25] MEDS: PANTOPRAZOLE 40MG TAB (PROTONIX) PO SCH (08:53)
[2022-07-25] MEDS: GABAPENTIN 300 MG CAP PO SCH ×2 (08:53→15:54)
[2022-07-25] MEDS: LEVEMIR (INSULIN DETEMIR) 1 UNITS/0.01ML SC SCH (08:54)
[2022-07-25] MEDS: INSULIN LISPRO (NovoLOG) PER UNIT SC SCH ×3 (08:54→17:07)
[2022-07-25 08:57] VITALS: BP 118/62
[2022-07-25] MEDS ORDERED: METOPROLOL SUCC (TopROL XL) 100MG *XL* TAB PO SCH (09:00)
[2022-07-25] MEDS ORDERED: predniSONE 20 MG TAB PO SCH (09:00)
[2022-07-25] MEDS ORDERED: PRED20TA PO ×2 (15:01→17:02)
[2022-07-25 17:13] VITALS: BP 141/70
== END 2022-07-25 17:57 | disposition home or self-care (01) | DRG 178 ==
LOC: M ED 09:42 → M ED INP 09:43 → ENRESERV 15:39 → M MSPAV 16:18 → OBSVTOIN 07-23 13:18
PROVIDERS: ADMIT Internal Medicine; ATTEND Family Medicine
DX: U07.1 COVID-19 (principal); N17.9 Acute kidney failure, unspecified; E11.9 Type 2 diabetes mellitus without complications; E78.5 Hyperlipidemia, unspecified; E86.0 Dehydration; K21.9 Gastro-esophageal reflux disease without esophagitis; R32 Unspecified urinary incontinence; R53.1 Weakness; R11.2 Nausea with vomiting, unspecified; G47.33 Obstructive sleep apnea (adult) (pediatric); E53.8 Deficiency of other specified B group vitamins; I10 Essential (primary) hypertension; Z88.0 Allergy status to penicillin; Z88.8 Allergy status to other drugs, medicaments and biological substances; Z91.041 Radiographic dye allergy status; Z79.82 Long term (current) use of aspirin; Z79.899 Other long term (current) drug therapy; Z79.4 Long term (current) use of insulin

== ENCOUNTER → 2022-09-27 | Outpatient (CLI) | payer OTHER ==
[~2022-09-27] MED LIST changes: +ASPI81TA26 PO; +B-12100020 PO; +E-Z-GAS II EFFERVESCENT PACKET (SODIUM BICARB./CITRIC ACID/SIMETHICONE) As Ordered ONE; +E-Z-HD 98% w/w 340GM SUSP BTL As Ordered ONE; +E-Z-PAQUE 96% w/w SUSP 176GM BTL As Ordered ONE; +FLUT50SP17 NARES; +JARD1TAB PO; +METO1TAB33 PO; +PANT40TA29 PO; +VITA100093 PO
== END ==
LOC: M RAD 08:09
PROVIDERS: ATTEND Nurse Practitioner Adult Health
DX: R13.10 Dysphagia, unspecified (principal)

== ENCOUNTER → 2023-01-24 | Outpatient (CLI) | payer OTHER ==
[~2023-01-24] MED LIST changes: -E-Z-GAS II EFFERVESCENT PACKET (SODIUM BICARB./CITRIC ACID/SIMETHICONE) As Ordered ONE; -E-Z-HD 98% w/w 340GM SUSP BTL As Ordered ONE; -E-Z-PAQUE 96% w/w SUSP 176GM BTL As Ordered ONE; -GABA-283 PO; +GABA-284 PO
[2023-01-24 14:06] LABS: CREATININE FOR GFR 1.34 MG/DL (0.55-1.30); GLOMERULAR FILTRATION RATE 40.7 (>39)
== END ==
LOC: M PLALAB 09:56
PROVIDERS: ATTEND Psychiatry & Neurology Neurology
DX: I10 Essential (primary) hypertension (principal)

== ENCOUNTER → 2023-02-16 | Outpatient (CLI) | payer OTHER | LOC: M WUC 14:20 | PROVIDERS: ATTEND Physician Assistant Medical | DX: M51.34 Other intervertebral disc degeneration, thoracic region (principal); M43.07 Spondylolysis, lumbosacral region ==

== ENCOUNTER → 2023-03-20 | Outpatient (CLI) | payer OTHER | LOC: M PLAIMG 11:01 | PROVIDERS: ATTEND Nurse Practitioner Family | DX: R19.7 Diarrhea, unspecified (principal) ==

== ENCOUNTER → 2023-05-10 | Outpatient (CLI) | payer OTHER ==
[~2023-05-10] MED LIST changes: -FLUT50SP17 NARES; +FLUTISP NARES
== END ==
LOC: M WHC 13:11
PROVIDERS: ATTEND Internal Medicine
DX: Z12.31 Encounter for screening mammogram for malignant neoplasm of breast (principal)

== ENCOUNTER → 2023-07-17 | Outpatient (REF) | payer OTHER ==
[2023-07-17 18:52] LABS: PERCENT SATURATION 17.6 % (13.2-45.0)
[2023-07-17 18:55] LABS: FERRITIN 5.9 NG/ML (7.3-270.7)
== END ==
LOC: M LAB REF 16:24
PROVIDERS: ATTEND Nurse Practitioner Adult Health
DX: D64.9 Anemia, unspecified (principal)

== ENCOUNTER → 2023-09-18 | Outpatient (CLI) | payer OTHER | LOC: M WUC 15:04 | PROVIDERS: ATTEND Nurse Practitioner Adult Health | DX: R06.02 Shortness of breath (principal) ==

== ENCOUNTER → 2023-10-08 | Outpatient (CLI) | payer OTHER | LOC: M WUC 11:58 | PROVIDERS: ATTEND Nurse Practitioner Adult Health | DX: M25.552 Pain in left hip (principal) ==

== ENCOUNTER → 2024-03-14 | Outpatient (REF) | payer OTHER | LOC: M LAB REF 16:15 | PROVIDERS: ATTEND Nurse Practitioner Family | DX: N39.0 Urinary tract infection, site not specified (principal) ==

== ENCOUNTER → 2024-04-02 | Outpatient (REF) | payer OTHER | LOC: M LAB REF 12:33 | PROVIDERS: ATTEND Nurse Practitioner Adult Health | DX: N39.0 Urinary tract infection, site not specified (principal) ==

== ENCOUNTER → 2024-05-29 | Outpatient (CLI) | payer MEDICARE, OTHER | LOC: M WHC 10:45 | PROVIDERS: ATTEND Nurse Practitioner Adult Health | DX: Z12.31 Encounter for screening mammogram for malignant neoplasm of breast (principal) ==

== ENCOUNTER → 2024-06-23 | Outpatient (REF) | payer MEDICARE, OTHER ==
[2024-06-23 14:23] LABS: CK-MB VALUE MASS < 1.0 NG/ML (<3.6)
[2024-06-23 14:42] LABS: CPK CREATINE PHOSPHOKINASE 69 U/L (34-145); MB/CK RELATIVE INDEX 1.44 (< OR =4)
== END ==
LOC: M LAB REF 12:43
PROVIDERS: ATTEND Nurse Practitioner Adult Health
DX: R07.89 Other chest pain (principal)

== ENCOUNTER → 2024-08-19 | Outpatient (CLI) | payer MEDICARE ==
[~2024-08-19] MED LIST changes: +GLIP2.5T46 PO; -GLIP2.5T6 PO
== END ==
LOC: M WUC 10:57
PROVIDERS: ATTEND Nurse Practitioner Adult Health
DX: M53.3 Sacrococcygeal disorders, not elsewhere classified (principal); M54.50 Low back pain, unspecified

== ENCOUNTER → 2025-01-03 | Outpatient (CLI) | payer MEDICARE | LOC: M RAD 12:01 | PROVIDERS: ATTEND Physical Medicine & Rehabilitation | DX: M47.897 Other spondylosis, lumbosacral region (principal) ==

== ENCOUNTER → 2025-02-19 | Outpatient (CLI) | payer MEDICARE | LOC: M WUC 14:39 | PROVIDERS: ATTEND Physician Assistant Medical | DX: R05.9 Cough, unspecified (principal) ==

== ENCOUNTER → 2025-03-26 | Outpatient (CLI) | payer MEDICARE | LOC: M WUC 11:33 | PROVIDERS: ATTEND Internal Medicine | DX: M25.551 Pain in right hip (principal) ==

== ENCOUNTER → 2025-04-13 | Outpatient (CLI) | payer MEDICARE ==
[~2025-04-13] MED LIST changes: +E-Z-GAS II EFFERVESCENT PACKET (SODIUM BICARB./CITRIC ACID/SIMETHICONE) As Ordered ONE; +E-Z-HD 98% w/w 340 GM SUSP BTL As Ordered ONE; +E-Z-PAQUE 96% w/w SUSP 176 GM BTL As Ordered ONE
== END ==
LOC: M RAD 08:18
PROVIDERS: ATTEND Nurse Practitioner Critical Care Medicine
DX: R13.10 Dysphagia, unspecified (principal)